=== PATIENT | female | born 1950 | race Caucasian/White ===

== ENCOUNTER 2017-03-12 17:35 | Outpatient (CLI) | payer MEDICARE, BC ==
--- NOTE | 2017-03-13 09:21 | XRAY Report ---
THREE-VIEW RIGHT FOOT: 03/12/2017 CLINICAL INDICATION: Pain. FINDINGS: AP, lateral, oblique views of the right foot demonstrate no evidence of fracture or disloc ation. Degenerative changes are noted in the interphalangeal joints. No radiopaque foreign body is seen in the soft tissues. IMPRESSION: MILD OSTEOARTHRITIS. NO EVIDENCE OF FRACTURE. 9:9:15 JOB #: [id number] EXT JOB #:[id number]
== END 2017-03-12 17:36 | disposition home or self-care (01) ==
LOC: DI 17:35
PROVIDERS: ATTEND Physician Assistant Medical
DX: M79.671 Pain in right foot (principal)

== ENCOUNTER 2017-10-22 08:41 | Day surgery (SDC) | payer MEDICARE, BC ==
[2017-10-22] MEDS ORDERED: LACTATED RINGERS 1,000 ML IV ONE (09:06)
[2017-10-22] MEDS ORDERED: MIDAZOLAM 2 MG/2 ML VIAL IVP ONE (09:33)
[2017-10-22] MEDS ORDERED: fentaNYL 250 MCG/5 ML VIAL IVP ONE (09:33)
[2017-10-22] MEDS ORDERED: ONDANSETRON 4 MG/2 ML VIAL IVP ONE (09:33)
[2017-10-22 10:22] VITALS: BP 124/78
== END 2017-10-22 08:42 | disposition home or self-care (01) ==
LOC: SDS 08:41
PROVIDERS: ATTEND Surgery
PROC: 0DBN8ZX Excision of Sigmoid Colon, Via Natural or Artificial Opening Endoscopic, Diagnostic (ICD-10-PCS; principal; 2017-10-22 09:45)
DX: Z12.11 Encounter for screening for malignant neoplasm of colon (principal); D12.5 Benign neoplasm of sigmoid colon; K64.8 Other hemorrhoids
CPT/HCPCS: 45380; J3010; J7120

== ENCOUNTER 2017-12-21 08:13 | Outpatient (CLI) | payer MEDICARE, BC ==
--- NOTE | 2017-12-22 17:17 | DEXA Report ---
DEXA SCAN: 12/21/2017 CLINICAL INDICATION: Postmenopausal. TECHNIQUE: Dual energy x-ray absorptiometry (DXA) was performed on a [employer] system. Regions measured are the AP spine, femoral neck, and, if needed, forearm. COMPARISON: None. In accordance with the International Society for Clinical Densitometry (ISCD) guidelines, data from previous exams may be reanalyzed using current recommendations and techniques. This is done to allow a more accurate basis for comparison with the current study. FINDINGS The data for the lumbar spine is as follows: REGION BMD (g/cm/cm) T-SCORE Z-SCORE L1 0.856 -2.3 -0.8 L2 1.108 -0.8 0.7 L3 1.117 -0.7 0.8 L4 0.963 -2.0 -0.5 L1-L4 1.007 -1.4 0.0 NOTE: All evaluable vertebrae are used for classification. The data for the hip is as follows: REGION BMD (g/cm/cm) T-SCORE Z-SCORE Neck 0.681 -2.6 -1.1 TOTAL 0.739 -2.1 -1.0 NOTE: The femoral neck or total proximal femur, whichever is lowest, is used for classification. IMPRESSION: WHO CLASSIFICATION BASED ON THE INTERNATIONAL REFERENCE STANDARD IS OSTEOPOROSIS (REFERENCE LEFT FEMORAL NECK). FRACTURE RISK IS HIGH. RECOMMENDATION: Patients with diagnosis of osteoporosis or osteopenia should have regular bone mineral density assessment. For those eligible for Medicare, routine testing is allowed once every 2 years. Testing frequency can be increased for patients who have rapidly progressing disease or for those who are receiving medical therapy to restore bone mass. COMMENT World Health Organization (WHO) definitions for osteoporosis and osteopenia: NORMAL BMD: T-score at 1.0 or higher, fracture risk is low. OSTEOPENIA BMD: T-score between 1.0 and -2.5, fracture risk is increased. OSTEOPOROSIS BMD: T-score at 2.5 or lower, fracture risk high. National Osteoporosis Foundation recommends: 1. Obtain adequate dietary calcium (at least 1200 mg per day) and vitamin D (400 -800 international units per day). 2. Participate, as appropriate, in regular weightbearing and muscle- strengthening exercise. 3. Avoid tobacco use and reduce alcohol and caffeine intake. 4. For more detailed information see the website at www.NOF.org. TD: 12/21/2017 09:53 LACHELLE
== END 2017-12-21 08:14 | disposition home or self-care (01) ==
LOC: DI 08:13
PROVIDERS: ATTEND Family Medicine
DX: Z78.0 Asymptomatic menopausal state (principal); M81.8 Other osteoporosis without current pathological fracture
CPT/HCPCS: 77080

== ENCOUNTER 2017-12-30 07:10 | Outpatient (CLI) | payer MEDICARE, BC | END 2017-12-30 07:11 | LOC: LAB.WCP 07:10 | PROVIDERS: ATTEND Family Medicine | DX: M81.0 Age-related osteoporosis without current pathological fracture (principal) | CPT/HCPCS: 36415; 82306 ==

== ENCOUNTER 2018-11-16 15:25 | Outpatient (CLI) | payer MEDICARE, BC ==
--- NOTE | 2018-11-17 10:35 | XRAY Report ---
Reason: OTHER CHEST PAIN Procedure Date: 11/16/2018 Accession Number: [id number] / [id number] Procedure: XR - Chest 2 View X-Ray CPT Code: 75296 FULL RESULT: EXAM: CHEST RADIOGRAPHY EXAM DATE: 11/16/2018 04:01 PM. CLINICAL HISTORY: Other chest pain. Recent mastectomy, left side. Drainage tube recently removed. Left-sided tenderness. COMPARISON: None. TECHNIQUE: 2 views. FINDINGS: Lungs/Pleura: No focal opacities evident. No pleural effusion. No pneumothorax. Normal volumes. Mediastinum: Heart and mediastinal contours are unremarkable. Other: Surgical clips project over the lower left thorax, possibly within the breast. IMPRESSION: No acute cardiopulmonary abnormality. RADIA
== END 2018-11-16 15:26 | disposition home or self-care (01) ==
LOC: DI 15:25
PROVIDERS: ATTEND Specialist
DX: R07.89 Other chest pain (principal)
CPT/HCPCS: 71046

== ENCOUNTER 2020-11-09 16:52 | Outpatient (CLI) | payer MEDICARE, BC | END 2020-11-09 16:53 | disposition home or self-care (01) | LOC: COV 16:52 | PROVIDERS: ATTEND Surgery | DX: Z01.812 Encounter for preprocedural laboratory examination (principal); K21.9 Gastro-esophageal reflux disease without esophagitis; Z86.010 Personal history of colon polyps; Z20.822 Contact with and (suspected) exposure to COVID-19 ==

== ENCOUNTER 2020-11-13 09:10 | Day surgery (SDC) | payer MEDICARE, BC ==
[2020-11-13] MEDS ORDERED: LACTATED RINGERS 1,000 ML IV ONE ×2 (09:14→11:50)
[2020-11-13] MEDS ORDERED: PROPOFOL 500 MG/50 ML 500 MG/50 ML VIAL ONE (09:58)
[2020-11-13] MEDS ORDERED: fentaNYL 100 MCG/2 ML VIAL ONE (09:58)
[2020-11-13] MEDS ORDERED: MIDAZOLAM 2 MG/2 ML VIAL ONE (09:58)
--- NOTE | 2020-11-13 10:30 | ANESTHESIA ---
Pre-Anesthesia VS, & Labs - Diagnosis GERD and history of colon polyps - Procedure EGD and colonoscopy Vital Signs: Temp Pulse Resp BP Pulse Ox 36.5 C 70 12 163/80 H 100 11/13/20 09:16 11/13/20 09:16 11/13/20 09:16 11/13/20 09:16 11/13/20 09:16 Height: 5 ft 5 in Weight (kg): 62.8 kg Body Mass Index: 23.0 BMI Classification: Healthy weight - NPO >8 hours - Is Patient ?: No Home Medications and Allergies Ascorbic Acid [Vitamin C] 1,000 mg PO DAILY 10/21/17 Cholecalciferol (Vitamin D3) [Vitamin D3] 1,000 unit PO DAILY 10/21/17 Krill/Medon-3/Dha/Epa/Lipids [Krill Oil 350 mg Softgel] 1 each PO DAILY 10/21/17 Magnesium 250 mg PO DAILY 10/21/17 Tumeric 500 mg PO DAILY 10/21/17 Allergies/Adverse Reactions: Allergies Allergy/AdvReac Type Severity Reaction Status Date / Time gluten AdvReac Unknown Verified 10/22/17 09:16 lactose AdvReac Unknown Verified 10/21/17 13:24 latex AdvReac Rash Verified 10/21/17 13:16 examestane Allergy Unknown Uncoded 10/22/17 09:15 Anes History & Medical History - Anesthetic History Anesthesia Complications: reports: No previous complications - Medical History Cardiovascular: reports: None Pulmonary: reports: None Gastrointestinal: reports: None Urinary: reports: None Neuro: reports: None Musculoskeletal: reports: None Endocrine/Autoimmune: reports: None Blood Disorders: reports: None Skin: reports: None Smoking Status: Never smoker Psychosocial: reports: Depression History of Cancer?: Yes (breast cancer) - Surgical History General: reports: Colonoscopy Gynecologic: reports: Mastectomy, Breast reduction, Breast implants, Other Exam General: Alert, Oriented x3, Cooperative, No acute distress Dental: WNL Mouth Openin Fingerbreadth Neck Mobility: Normal Mallampati classification: II Thyromental Distance: greater than 6 cm Mental/Cognitive Status: Alert/Oriented X3, Normal for patient Plan Anesthesia Type: MAC Consent for Procedure(s) Verified and Reviewed: Yes Code Status: Attempt Resuscitation ASA classification: 1-Healthy patient Is this case an emergency?: No
[2020-11-13] MEDS ORDERED: LIDOCAINE-MPF 2% 5 ML VIAL ONE (11:39)
--- NOTE | 2020-11-13 11:56 | ANESTHESIA POST OP EVALUATION ---
Anesthesia Post Eval - Post Anesthesia Eval Vitals: Last Vital Signs Temp 36.4 C L 11/13/20 11:48 Pulse 70 11/13/20 11:48 Resp 16 11/13/20 11:48 BP 121/58 L 11/13/20 11:48 Pulse Ox 99 11/13/20 11:48 CV Function Including HR & BP: Stable Pain Control: Satisfactory Nausea & Vomiting: Negative Mental Status: Baseline Respiratory Status: Airway Patent Hydration Status: Satisfactory Anesthesia Complications: None
[2020-11-13 12:09] VITALS: BP 118/66
== END 2020-11-13 09:11 | disposition home or self-care (01) ==
LOC: SDS 09:10
PROVIDERS: ATTEND Surgery
PROC: 0DB48ZX Excision of Esophagogastric Junction, Via Natural or Artificial Opening Endoscopic, Diagnostic (ICD-10-PCS; principal; 2020-11-13 10:15)
DX: R19.7 Diarrhea, unspecified (principal); K21.9 Gastro-esophageal reflux disease without esophagitis; R13.10 Dysphagia, unspecified; K29.70 Gastritis, unspecified, without bleeding; K64.8 Other hemorrhoids; L81.4 Other melanin hyperpigmentation; Z86.010 Personal history of colon polyps; E78.5 Hyperlipidemia, unspecified; E55.9 Vitamin D deficiency, unspecified; N39.41 Urge incontinence; D89.89 Other specified disorders involving the immune mechanism, not elsewhere classified; Z85.3 Personal history of malignant neoplasm of breast; Z79.899 Other long term (current) drug therapy
CPT/HCPCS: 43239; 45378; J7120

== ENCOUNTER 2021-08-06 09:19 | Outpatient (CLI) | payer MEDICARE, BC ==
--- NOTE | 2021-08-06 09:49 | CT Report ---
PROCEDURE: HEAD WO INDICATIONS: BILATERAL ATAXIA TECHNIQUE: Noncontrast 4.5 mm thick angled axial sections acquired from the foramen magnum to the vertex. For r adiation dose reduction, the following was used: automated exposure control, adjustment of mA and/or kV according to patient size. COMPARISON: None. FINDINGS: Image quality: Excellent. CSF spaces: Basal cisterns are patent. No extra-axial fluid collections. Ventricles are normal in size and shape. Brain: No midline shift. No intracranial masses or hemorrhage. Payne-white matter interface is norm al. Skull and face: Calvarium and visualized facial bones are intact, without suspicious lesions. Sinuses: Visualized sinuses and mastoids are clear. IMPRESSION: No acute intracranial abnormality. No explanation for ataxia. Reviewed by: Diony Stubbs MD on 08/06/2021 9:47 AM PST Approved by: Diony Stubbs MD on 08/06/2021 9:47 AM [facility] Station ID: [id number]
== END 2021-08-06 09:20 | disposition home or self-care (01) ==
LOC: DI 09:19
PROVIDERS: ATTEND Physician Assistant
DX: R27.0 Ataxia, unspecified (principal); R51.9 Headache, unspecified; R53.83 Other fatigue